=== PATIENT | female | born 1990 | race Caucasian/White ===

== ENCOUNTER 2018-11-16 22:14 | Emergency (ER) | payer OTHER ==
[2018-11-16 22:27] VITALS: BP 104/66; PULSE 74; TEMP 98.4; BMI 15.7
[2018-11-16] MEDS ORDERED: SODIUM CHLORIDE 1,000 ML IV ONE (22:35)
--- NOTE | 2018-11-16 22:56 | PDOC ---
Documentation entered by Anju Hernandez SCRIBE, acting as scribe for Leonardo Cool MD. Leonardo Cool MD: This documentation has been prepared by the shruthiibe, Anju Hernandez SCRIBE, under my direction and personally reviewed by me in its entirety. I confirm that the documentation accurately reflects all work , treatment, procedures, and medical decision making performed by me. History of Present Illness - General Chief Complaint: Eating Problem Stated Complaint: DEHYDRATION History Source: Patient Exam Limitations: No Limitations - History of Present Illness Initial Comments: 11/16/18 22:27 The patient is a 28-year-old female who presents to the emergency department with abnormal lab values. The patient had lab work done on 11/16, which was significant for BUN: 29, Creatinine: .5, and BUN/Cr ratio: 58.0. The patient reports being compliant with water and Gatorade during meal and snack time. The patient denies any other complaint. PAST MEDICAL HISTORY: anorexia nervosa, depression. PAST SURGICAL HISTORY: no significant history FAMILY HISTORY: no pertinent history SOCIAL HISTORY: Pt lives at [facility]. MEDICATIONS: reviewed ALLERGIES: As per nursing notes ROS: General: No fevers or chills, no weakness, no weight loss HEENT: No change in vision. No sore throat,. No ear pain CardioVascular: No chest pain or shortness of breath Respiratory:No cough, or wheezing. Gastrointestinal: no nausea, vomiting, diarrhea or constipation, No rectal bleeding Genitourinary: No dysuria, hematuria, or frequency Musculoskeletal: No joint or muscle pain or swelling Neurologic: No headache, vertigo, dizziness or loss of consciousness Psychiatric: nor depression Skin: No rashes or easy bruising Endocrine: no increased thirst or abnormal weight change Allergic: no skin or latex allergy All other systems reviewed and normal PE: GENERAL: The patient is awake, alert, and fully oriented, in no acute distress. HEAD: Normal with no signs of trauma. EYES: Pupils equal, round and reactive to light, extraocular movements intact, sclera anicteric, conjunctiva clear. EXTREMITIES: Normal range of motion, no edema. NEUROLOGICAL: Normal speech, normal gait. PSYCH: Normal mood, normal affect. SKIN: Warm, Dry, normal turgor, no rashes or lesions noted. Past History - Past Medical History Allergies/Adverse Reactions: Allergies Allergy/AdvReac Type Severity Reaction Status Date / Time olanzapine [From Zyprexa] Allergy Verified 11/16/18 22:16 Home Medications: Ambulatory Orders Cholecalciferol (Vitamin D3) [Vitamin D3] 1,000 unit PO DAILY 11/16/18 Ferrous Sulfate 325 mg PO DAILY 11/16/18 Lactase [Lactase Fast Acting] 9,000 unit PO PRN PRN 11/16/18 Multivitamins [Tab-A-Vit -] 1 tab PO DAILY 11/16/18 *Physical Exam - Vital Signs Last Vital Signs Temp Pulse Resp BP Pulse Ox 98.4 F 74 16 104/66 100 11/16/18 22:21 11/16/18 22:21 11/16/18 22:21 11/16/18 22:21 11/16/18 22:21 Discharge - Discharge Information Problems reviewed: Yes Clinical Impression/Diagnosis: Dehydration Eating disorder Qualifiers: Eating disorder type: unspecified eating disorder Qualified Code(s): F50.9 - Eating disorder, unspecified Condition: Stable Disposition: HOME - Admission No - Follow up/Referral - Patient Discharge Instructions Additional Instructions: Return to the emergency department immediately with ANY new, persistent or worsening symptoms. Continue any medications as previously prescribed by your physician. You should follow up with your primary doctor as soon as possible regarding today's emergency department visit. . Please make sure your doctor reviews the results of your emergency evaluation. Thank you for coming to the Emergency Department today for your care. It was a pleasure to see you today. Please note that your evaluation is INCOMPLETE until you follow-up with your doctor. - Post Discharge Activity
== END 2018-11-16 23:26 | disposition home or self-care (01) ==
LOC: FER 22:14
PROC: 3E0337Z Introduction of Electrolytic and Water Balance Substance into Peripheral Vein, Percutaneous Approach (ICD-10-PCS; principal; 2018-11-16)
DX: E86.0 Dehydration (principal); F50.9 Eating disorder, unspecified; Z88.8 Allergy status to other drugs, medicaments and biological substances; Z68.1 Body mass index [BMI] 19.9 or less, adult; F32.9 Major depressive disorder, single episode, unspecified; F50.00 Anorexia nervosa, unspecified
CPT/HCPCS: 99282-25; J7030

== ENCOUNTER 2018-11-30 18:51 | Emergency (ER) | payer OTHER ==
[2018-11-30 19:13] VITALS: BP 104/67; PULSE 89; TEMP 98.6; BMI 15.7
[2018-11-30] MEDS ORDERED: SODIUM CHLORIDE 0.9% 1000 ML INFUS.BAG IV ONE (19:35)
--- NOTE | 2018-11-30 20:18 | PDOC ---
Documentation entered by Anju Hernandez SCRIBE, acting as scribe for Ladan Newby MD. Ladan Newby MD: This documentation has been prepared by the shruthiibeDavid Lincy, SCRIBE, under my direction and personally reviewed by me in its entirety. I confirm that the documentation accurately reflects all work, treatment, procedures, and medical decision making performed by me. History of Present Illness - General Chief Complaint: Eating Problem Stated Complaint: DEHYDRATION History Source: Patient Exam Limitations: No Limitations - History of Present Illness Initial Comments: 11/30/18 19:41 The patient is a 28-year-old female with a past medical history significant for anorexia nervosa and depression, who presents to the emergency department from [facility] for abnormal lab results. The patient had lab work done on 11/30, which was significant for BUN: 25, Cr: 0.4, and BUN/ Cr ratio: 62.5. The patient was sent to the ER by the in house [facility] for fluids. The patient reports being compliant with fluids. Denies vomiting. Allergies: olanzapine At facility PCP: LIZ Thomas . Past History - Past Medical History Allergies/Adverse Reactions: Allergies Allergy/AdvReac Type Severity Reaction Status Date / Time olanzapine [From Zyprexa] Allergy Verified 11/16/18 22:16 Home Medications: Ambulatory Orders Cholecalciferol (Vitamin D3) [Vitamin D3] 1,000 unit PO DAILY 11/16/18 Ferrous Sulfate 325 mg PO DAILY 11/16/18 Lactase [Lactase Fast Acting] 9,000 unit PO PRN PRN 11/16/18 Multivitamins [Tab-A-Vit -] 1 tab PO DAILY 11/16/18 Magnesium Carb/Aluminum Hydrox [Gaviscon Es Tablet Chew] 2 each PO TID PRN 11/30 Simethicone [Gas-X] 250 mg PO BID PRN 11/30/18 Anemia: Yes COPD: No GI Disorders: Yes (LACTOSE INTOLERANCE) Psychiatric Problems: Yes (EATING DISORDER) - Psycho Social/Smoking Cessation Hx Smoking History: Never smoked Hx Alcohol Use: No Drug/Substance Use Hx: No Review of Systems - Review of Systems Able to Perform ROS?: Yes Comments:: 11/30/18 19:42 GENERAL/CONSTITUTIONAL: No fever or chills. No weakness. HEAD, EYES, EARS, NOSE AND THROAT: No change in vision. No ear pain or discharge. No sore throat. CARDIOVASCULAR: No chest pain or shortness of breath. RESPIRATORY: No cough, wheezing, or hemoptysis. GASTROINTESTINAL: No nausea, vomiting, diarrhea or constipation. GENITOURINARY: No dysuria, frequency, or change in urination. MUSCULOSKELETAL: No joint or muscle swelling or pain. No neck or back pain. SKIN: No rash NEUROLOGIC: No headache, vertigo, loss of consciousness, or change in strength/ sensation. ENDOCRINE: No increased thirst. No abnormal weight change. HEMATOLOGIC/LYMPHATIC: No anemia, easy bleeding, or history of blood clots. ALLERGIC/IMMUNOLOGIC: No hives or skin allergy. *Physical Exam - Vital Signs Last Vital Signs Temp Pulse Resp BP Pulse Ox 98.6 F 89 18 104/67 100 11/30/18 18:53 11/30/18 18:53 11/30/18 18:53 11/30/18 18:53 11/30/18 18:53 - Physical Exam Comments: 11/30/18 20:16 pt is thin , dry mucous membranes. lungs are clear bilaterally heart rrr no mrg abd soft distended. nontender. ext thin, scarring in linear pattern noted over her forearms. Heart Score/ECG Review #1 General ECG Interpretation: Sinus Rhythm, Normal Rate (86), Normal Intervals, No acute ischemic changes ED Treatment Course - Medications Given in the ED: ED Medications Discontinued Medications Generic Name Dose Route Start Last Admin Trade Name Freq PRN Reason Stop Dose Admin Sodium Chloride 1,000 ml 11/30/18 19:35 11/30/18 19:45 Normal Saline - IV 11/30/18 19:36 1,000 ml ONCE ONE Administration Medical Decision Making - Medical Decision Making 11/30/18 20:13 28 yo F with h/o anorexia nervosa , major depression, currently a resident at [facility] [place] , sent for increasing BUn/ creatinine ration and concerns for dehydration. per pt she does not purge, only restricts. she has been eating and drinking water and gatorade as instructed at the facility. unsure why she continue to be dehydrated. baseline BP in 90's sbp/ pt is scheduled to see a urologist this week, tomorrow. currently at 78% IBW at 38.3 kg pt will be given 1 L NS per facility instruction. d/w nurse at the site. also EKG perfromed. no sign of dsrythmia, [place] [id number] v1 - V2 Discharge - Discharge Information Problems reviewed: Yes Clinical Impression/Diagnosis: Anorexia, Dehydration Condition: Good Disposition: HOME - Admission No - Follow up/Referral Referrals: Trina Coto [employer] [Primary Care Provider] - - Patient Discharge Instructions Patient Printed Discharge Instructions: Anorexia-Adult Additional Instructions: you should return for any problems or concerns. follow up with your urologist as scheduled. be sure to comly with all dietary instructions at the facility. - Post Discharge Activity
--- NOTE | 2018-12-01 12:39 | EKG ---
Test Reason : Blood Pressure : / mmHG Vent. Rate : 086 BPM Atrial Rate : 086 BPM P-R Int : 122 ms QRS Dur : 072 ms QT Int : 356 ms P-R-T Axes : 057 117 069 degrees QTc Int : 426 ms NORMAL SINUS RHYTHM POSSIBLE LEFT ATRIAL ENLARGEMENT RIGHT AXIS DEVIATION ABNORMAL ECG NO PREVIOUS ECGS AVAILABLE Confirmed by MARCO ROMEO MD ([id number]) on 12/01/2018 12:39:28 PM Referred By: DR BUCKLEY Confirmed By:MARCO ROMEO MD
== END 2018-11-30 20:33 | disposition home or self-care (01) ==
LOC: FER 18:51
PROC: 3E0337Z Introduction of Electrolytic and Water Balance Substance into Peripheral Vein, Percutaneous Approach (ICD-10-PCS; principal; 2018-11-30)
DX: F50.00 Anorexia nervosa, unspecified (principal); E86.0 Dehydration; F32.9 Major depressive disorder, single episode, unspecified; Z88.8 Allergy status to other drugs, medicaments and biological substances; D64.9 Anemia, unspecified; Z91.011 Allergy to milk products
CPT/HCPCS: 93005; 99283-25; J7030